=== PATIENT | male | born 1955 | race Caucasian/White ===

== ENCOUNTER → 2017-12-07 | Outpatient (CLI) | payer MEDICARE, MEDICAID | LOC: M RAD 13:08 | DX: N18.3 Chronic kidney disease, stage 3 (moderate) (principal); N28.1 Cyst of kidney, acquired | CPT/HCPCS: 76775 ==

== ENCOUNTER → 2018-01-15 | Outpatient (REF) | payer MEDICARE, MEDICAID ==
[2018-01-15 12:56] LABS: APPEARANCE, URINE CLEAR (CLEAR); BACTERIA, URINE AUTO NEGATIVE (NEGATIVE); BILIRUBIN, URINE AUTO NEGATIVE (NEGATIVE); BLOOD, URINE BLOOD NEGATIVE (NEGATIVE); COLOR, URINE YELLOW (YELLOW); GLUCOSE, URINE (UA) AUTO NEGATIVE (NEGATIVE); KETONE, URINE AUTO NEGATIVE (NEGATIVE); LEUKOCYTE ESTERASE, URINE AUTO NEGATIVE (NEGATIVE); MUCUS, URINE SMALL (NEGATIVE); NITRITE, URINE AUTO NEGATIVE (NEGATIVE); PROTEIN, URINE AUTO 1+ mg/dL (NEGATIVE); RBC, URINE AUTO 1 /HPF (0-3); SPECIFIC GRAVITY URINE AUTO 1.015 (1.002-1.035); SQUAMOUS EPITHELIAL CELL UR AU 0 /HPF (0-6); UROBILINOGEN, URINE AUTO 0.2 mg/dL (0.0-2.0); WBC, URINE AUTO 6 /HPF (0-3)
[2018-01-15 13:02] LABS: BASO # 0.1 10^3/uL (0.0-0.2); BASO % 0.6 % (0.0-1.0); EOS # 0.4 10^3/uL (0.0-0.50); EOS % 3.3 % (0.0-3.0); HEMATOCRIT 44.2 % (42.0-52.0); IMMATURE GRANULOCYTE % 0.2 % (0-3.0); LYMPH % 18.4 % (24.0-44.0); MEAN CORPUSCULAR HEMOGLOBIN 27.8 pg (27.0-33.0); MEAN CORPUSCULAR HGB CONC 31.7 g/dl (32.0-36.5); MEAN CORPUSCULAR VOLUME 87.9 fl (80.0-96.0); MONO # 0.7 10^3/uL (0.0-0.8); MONO % 6.4 % (0.0-5.0); NEUTROPHILS # 7.6 10^3/uL (1.8-7.7); NEUTROPHILS % 71.1 % (36.0-66.0); PLATELET COUNT, AUTOMATED 309 10^3/uL (150-450); RED BLOOD COUNT 5.03 10^6/uL (4.30-6.10); RED CELL DISTRIBUTION WIDTH 14.4 % (11.5-14.5); WHITE BLOOD COUNT 10.7 10^3/uL (4.0-10.0)
[2018-01-15 13:51] LABS: MAU/CREAT RATIO 100.7 MCG/MG (0.0-30.0)
[2018-01-15 14:17] LABS: ALBUMIN 3.4 GM/DL (3.2-5.2); ALBUMIN/GLOBULIN RATIO 1.21 (1.00-1.93); ALKALINE PHOSPHATASE 118 U/L (45-117); ALT/SGPT 34 U/L (12-78); ANION GAP 8 MEQ/L (8-16); AST/SGOT 19 U/L (7-37); BILIRUBIN,TOTAL 0.5 MG/DL (0.2-1.0); BLOOD UREA NITROGEN 26 MG/DL (7-18); CALCIUM LEVEL 8.7 MG/DL (8.8-10.2); CARBON DIOXIDE LEVEL 28 MEQ/L (21-32); CHLORIDE LEVEL 107 MEQ/L (98-107); CHOLESTEROL LEVEL 172 MG/DL (<200); CHOLESTEROL RISK RATIO 4.648 (<5); CREATININE FOR GFR 2.04 MG/DL (0.70-1.30); FREE T4 0.88 NG/DL (0.76-1.46); GLOMERULAR FILTRATION RATE 35.3 (>49); GLUCOSE, FASTING 115 MG/DL (70-100); HDL CHOLESTEROL 37 MG/DL (>40); LDL CHOLESTEROL 99 MG/DL (<100); NON-HDL-C 135 MG/DL; POTASSIUM SERUM 4.6 MEQ/L (3.5-5.1); SODIUM LEVEL 143 MEQ/L (136-145); TOTAL 25(OH) VITAMIN D 94.4 NG/ML (30.0-100.0); TOTAL PROTEIN 6.2 GM/DL (6.4-8.2); TRIGLYCERIDES LEVEL 181 MG/DL (<150)
[2018-01-15 14:39] LABS: ESTIMATED AVERAGE GLUCOSE 126 MG/DL (60-110)
== END ==
LOC: M SFHCADAM 08:34
DX: N18.3 Chronic kidney disease, stage 3 (moderate) (principal); K21.0 Gastro-esophageal reflux disease with esophagitis; E55.9 Vitamin D deficiency, unspecified; I05.9 Rheumatic mitral valve disease, unspecified; R73.01 Impaired fasting glucose
CPT/HCPCS: 84443

== ENCOUNTER → 2018-01-29 | Outpatient (CLI) | payer MEDICARE, MEDICAID | LOC: M RAD 09:44 | DX: Z12.2 Encounter for screening for malignant neoplasm of respiratory organs (principal); R91.8 Other nonspecific abnormal finding of lung field; Z87.891 Personal history of nicotine dependence | CPT/HCPCS: G0297 ==

== ENCOUNTER 2018-02-13 13:55 | Emergency (ER) | payer MEDICARE, MEDICAID ==
[2018-02-13] MEDS: ADACEL/BOOSTRIX VACCINE (DIPHTH/PERTUSS/ACELL/TETANUS)0.5ML SYR (90715) IM (15:51)
== END 2018-02-13 16:14 | disposition home or self-care (01) ==
LOC: M ED 13:55
DX: S41.159A Open bite of unspecified upper arm, initial encounter (principal); W54.0XXA Bitten by dog, initial encounter; I25.10 Atherosclerotic heart disease of native coronary artery without angina pectoris; K21.9 Gastro-esophageal reflux disease without esophagitis; J45.909 Unspecified asthma, uncomplicated; Y92.9 Unspecified place or not applicable
CPT/HCPCS: 90715

== ENCOUNTER → 2018-02-22 | Outpatient (CLI) | payer MEDICARE, MEDICAID ==
[~2018-02-22] MED LIST: ACET1TAB55 PO; ACID1CAP5 PO; ASPI81TA85 PO; ATEN50TA2 PO; ATOR1TAB21 PO; AUGM875T28 PO; COUM1TAB17 PO; KEFL500C17 PO; LIPI10TA PO; NITR4TASL SL; OMEP20CA3 PO
--- NOTE | 2018-02-23 02:40 | REP ---
Clinical: Panlobular emphysema . Comparison: 11/08/2017 in . Technique: PA and lateral. Findings: The mediastinum and cardiac silhouette are normal. The lung gill[place] demonstrate chronic appearing interstitial changes as well as prior sternotomy and cardiac valve repair without acute. No consolidation, effusion, or pneumothorax. The skeletal structures are intact and normal. Impression: 1. No acute cardiopulmonary process. Electronically Signed by Marquez Crowe MD 02/23/2018 02:31 A
== END ==
LOC: M ADAMS 09:49
PROVIDERS: ATTEND Physician Assistant Medical
DX: J43.1 Panlobular emphysema (principal); R91.1 Solitary pulmonary nodule

== ENCOUNTER 2018-03-15 06:27 | Inpatient (IN) | payer MEDICARE, MEDICAID ==
[2018-03-15] VITALS (21 sets, daily range): BP systolic 98–165; BP diastolic 62–81
[~2018-03-15 06:27] MED LIST changes: +HEPARIN 1,000 UNITS/ML 10ML VIAL (FOR RADIOLOGY& DIALYSIS ONLY) As Ordered ONE; +ISOVUE-300 61% 50ML VIAL (Q9967) As Ordered ONE; +LIDOCAINE 2% MDV 20 ML VIAL As Ordered ONE; +MIDAZOLAM INJ 2 MG/2 ML VIAL (J2250) As Ordered ONE; +fentaNYL 100 MCG/2 ML INJECTION (J3010) As Ordered ONE
[2018-03-15 07:06] LABS: HEMOGLOBIN 14.2 g/dl (13.5-17.5); MEAN CORPUSCULAR HEMOGLOBIN 27.8 pg (27.0-33.0); MEAN CORPUSCULAR HGB CONC 32.3 g/dl (32.0-36.5); MEAN CORPUSCULAR VOLUME 86.1 fl (80.0-96.0); PLATELET COUNT, AUTOMATED 265 10^3/uL (150-450); RED BLOOD COUNT 5.11 10^6/uL (4.30-6.10); WHITE BLOOD COUNT 13.4 10^3/uL (4.0-10.0)
[2018-03-15 07:33] LABS: INR 3.38
[2018-03-15 07:54] LABS: CALCIUM LEVEL 8.8 MG/DL (8.8-10.2); CREATININE FOR GFR 2.15 MG/DL (0.70-1.30); GLOMERULAR FILTRATION RATE 33.2 (>49); POTASSIUM SERUM 4.5 MEQ/L (3.5-5.1)
[2018-03-15 10:34] LABS: HEMOGLOBIN 13.1 g/dl (13.5-17.5); MEAN CORPUSCULAR HEMOGLOBIN 28.1 pg (27.0-33.0); MEAN CORPUSCULAR VOLUME 87.8 fl (80.0-96.0); PLATELET COUNT, AUTOMATED 245 10^3/uL (150-450); RED BLOOD COUNT 4.67 10^6/uL (4.30-6.10); WHITE BLOOD COUNT 12.5 10^3/uL (4.0-10.0)
[2018-03-15 10:56] LABS: ALBUMIN 3.2 GM/DL (3.2-5.2); BILIRUBIN,TOTAL 0.7 MG/DL (0.2-1.0); CALCIUM LEVEL 8.1 MG/DL (8.8-10.2); CREATININE FOR GFR 2.22 MG/DL (0.70-1.30); TOTAL PROTEIN 5.7 GM/DL (6.4-8.2)
[2018-03-15] MEDS ORDERED: PHYTONADIONE 5 MG TAB PO ONE (11:00)
[2018-03-15] MEDS ORDERED: BISACODYL 10 MG SUPP PR PRN (11:30)
[2018-03-15] MEDS ORDERED: ACETAMINOPHEN TAB 650MG DOSE (2X325MG) PO PRN (11:30)
[2018-03-15] MEDS ORDERED: MOM 30ML SUSPENSION UDC PO PRN (11:30)
[2018-03-15] MEDS ORDERED: ONDANSETRON 4MG/2ML VIAL (J2405) IV PRN (11:30)
[2018-03-15 12:06] LABS: INR 3.25; PROTHROMBIN TIME 33.9 SECONDS (12.1-14.4)
[2018-03-15] MEDS: LR 1,000 ML IV SCH ×2 (12:51→20:10)
[2018-03-15] MEDS: DOCUSATE SODIUM 100 MG CAP PO SCH ×2 (13:14→21:53)
[2018-03-15] MEDS: SENOKOT S TAB PO SCH ×2 (13:14→21:53)
--- NOTE | 2018-03-15 13:57 | REP ---
CT abdomen and pelvis without IV contrast: History: Abdominal aortic aneurysm. Right common iliac artery aneurysm. CT findings: Preliminary digital quarantine inspector radiograph demonstrates retained diverticular barium in the left colon, appendicular barium on the right and median sternotomy and cardiac valve replacement wires in the lower chest. Bowel gas pattern is normal. The liver and the spleen are normal in size, homogeneous in texture. There is a sliding type hiatal hernia. No adrenal lesion is seen. There are three identifiable accessory splenules. There is marked renal cortical atrophy of the right kidney which is quite small. Mild atrophic changes are noted on the left. There is contrast material in the collecting system bilaterally. I suspect a parenchymal calcification in the left mid kidney as well. No hydronephrosis is seen. No pancreatic abnormalities observed. There is a descending duodenal diverticulum. An infrarenal bilobed abdominal aortic aneurysm is seen. The more proximal portion of dilation measures 3.7 cm in AP dimension. Distal portion of the aneurysm measures 3.1 cm in AP dimension. The right common iliac artery is mildly aneurysmal as well measuring 2.2 cm in greatest AP dimension. There is a moderate size hematoma involving the right inguinal canal and extra peritoneal soft tissues. This displaces the bladder dome to the left and extends well up into the extraperitoneal portion of the pelvis anteriorly. Seminal vesicles and prostate are unremarkable. Left colonic diverticulosis is seen. Impression: Extraperitoneal right groin and right pelvic hematoma displacing the bladder to the left. Aorto right iliac aneurysm as above. Left colonic diverticulosis. Electronically Signed by Andre Cisneros MD 03/15/2018 04:25 P
[2018-03-15] MEDS ORDERED: ATENOLOL 50 MG TAB PO SCH (20:00)
[2018-03-15] MEDS ORDERED: ATENOLOL 50 MG TAB As Ordered ONE (20:08)
[2018-03-15] MEDS ORDERED: OMEPRAZOLE 20 MG CAP PO SCH (21:00)
[2018-03-15] MEDS ORDERED: METOPROLOL 5 MG/5 ML VIAL IV ONE (21:40)
[2018-03-15] MEDS ORDERED: METOPROLOL 5 MG/5 ML VIAL As Ordered ONE (21:48)
[2018-03-16] VITALS (13 sets, daily range): BP systolic 83–128; BP diastolic 56–77
[2018-03-16] MEDS: LR 1,000 ML IV SCH (03:47)
[2018-03-16 05:10] LABS: BASO % 0.1 % (0.0-1.0); EOS # 0.3 10^3/uL (0.0-0.50); EOS % 3.2 % (0.0-3.0); HEMATOCRIT 36.6 % (42.0-52.0); HEMOGLOBIN 11.9 g/dl (13.5-17.5); LYMPH # 1.6 10^3/uL (1.5-4.5); LYMPH % 16.5 % (24.0-44.0); MEAN CORPUSCULAR HEMOGLOBIN 28.3 pg (27.0-33.0); MEAN CORPUSCULAR HGB CONC 32.5 g/dl (32.0-36.5); MEAN CORPUSCULAR VOLUME 87.1 fl (80.0-96.0); MONO # 0.7 10^3/uL (0.0-0.8); MONO % 6.9 % (0.0-5.0); NEUTROPHILS % 73.1 % (36.0-66.0); PLATELET COUNT, AUTOMATED 229 10^3/uL (150-450); WHITE BLOOD COUNT 9.5 10^3/uL (4.0-10.0)
[2018-03-16 05:27] LABS: CREATININE FOR GFR 2.06 MG/DL (0.70-1.30); GLOMERULAR FILTRATION RATE 34.9 (>49); POTASSIUM SERUM 4.4 MEQ/L (3.5-5.1)
[2018-03-16 05:33] LABS: INR 1.25; PROTHROMBIN TIME 15.9 SECONDS (12.1-14.4)
[2018-03-16 05:34] LABS: PARTIAL THROMBOPLASTIN TIME 30.4 SECONDS (25.4-37.6)
[2018-03-16 08:46] LABS: INR 1.46
[2018-03-16] MEDS: DOCUSATE SODIUM 100 MG CAP PO SCH (09:00)
[2018-03-16] MEDS: SENOKOT S TAB PO SCH (09:00)
--- NOTE | 2018-03-16 10:25 | IPNPDOC ---
Subjective Date Seen The patient was seen on 03/16/18. Subjective Chief Complaint/HPI C/o soreness in Rt groin. +BM yesterday and today. Objective Physical Examination General Exam: Positive: Alert, No Acute Distress Eye Exam: Positive: PERRLA, Conjunctiva & lids normal, EOMI ENT Exam: Positive: Atraumatic Neck Exam: Positive: Supple, +2 carotid pulse wo bruit Chest Exam: Positive: Clear to auscultation, Normal air movement; Negative: Rales, Rhonchi, Wheezing, Diminished, Other Heart Exam: Positive: Rate Normal, Irregular Rhythm, Normal S1, Normal S2; Negative: Regular Rhythm, Gallops, Murmurs, Rubs, Other Abdomen Exam: Positive: BS Hypoactive, Tenderness (Distended abd, no rebound or rigid abd, RLQ tenderness, dull to percusion), Other; Negative: Normal bowel sounds, Soft, Hepatospenomegaly, Mass, Hernia Neuro Exam: Positive: Normal Speech, Cranial Nerves 3-12 NL Psych Exam: Positive: Mental status NL, Mood NL Assessment /Plan Assessment 1. Rt groin hematoma S/p BLE angiogram for PVD Hematoma is stable w/o change from yesterday. ready to dc home. 2. Infrarenal AAA incidental. 3. Rt CHRISTIAN aneurysm, incidental. 4. BLE PVD with claudication. 5. CAD s/p CABG x3, 1995 6. CKD III 7. TAMIR on CPAP Plan/VTE VTE Prophylaxis Ordered?: Yes Plan DC home today. F/u with Dr Nascimento in 1 week. [facility] Vital Signs/I&O Vital Signs Date Time Temp Pulse Resp B/P (MAP) Pulse Ox O2 Delivery O2 Flow Rate FiO2 03/16/18 09:00 75 108/60 (76) 03/16/18 08:00 98.1 18 94 Room Air 03/15/18 17:00 1.0 I&O- Last 24 Hours up to 6 AM 03/16/18 06:00 Intake Total 2435 ml Output Total 875 ml Balance 1560 ml Laboratory Data 24H LABS Laboratory Tests 2 03/15/18 18:32: Prothrombin Time 18.0H, Prothromb Time International Ratio 1.46 03/16/18 04:52: Prothrombin Time 15.9H, Prothromb Time International Ratio 1.25, Immature Granulocyte % (Auto) 0.2, White Blood Count 9.5, Red Blood Count 4.20L, Hemoglobin 11.9L, Hematocrit 36.6L, Mean Corpuscular Volume 87.1, Mean Corpuscular Hemoglobin 28.3, Mean Corpuscular Hemoglobin Concent 32.5, Red Cell Distribution Width 14.6H, Platelet Count 229, Neutrophils (%) (Auto) 73.1H, Lymphocytes (%) (Auto) 16.5L, Monocytes (%) (Auto) 6.9H, Eosinophils (%) (Auto) 3.2H, Basophils (%) (Auto) 0.1, Neutrophils # (Auto) 7.0, Lymphocytes # (Auto) 1.6, Monocytes # (Auto) 0.7, Eosinophils # (Auto) 0.3, Basophils # (Auto) 0.0, Nucleated Red Blood Cells % (auto) 0.0, Activated Partial Thromboplast Time 30.4, Anion Gap 5L, Glomerular Filtration Rate 34.9L, Blood Urea Nitrogen 30H, Creatinine 2.06H, Sodium Level 142, Potassium Level 4.4, Chloride Level 109H, Carbon Dioxide Level 28, Calcium Level 8.0L CBC/BMP Laboratory Tests 03/16/18 04:52 Red Blood Count 4.20 L, Mean Corpuscular Volume 87.1, Mean Corpuscular Hemoglobin 28.3, Mean Corpuscular Hemoglobin Concent 32.5, Red Cell Distribution Width 14.6 H, Neutrophils (%) (Auto) 73.1 H, Lymphocytes (%) (Auto) 16.5 L, Monocytes (%) (Auto) 6.9 H, Eosinophils (%) (Auto) 3.2 H, Basophils (%) (Auto) 0.1, Neutrophils # (Auto) 7.0, Lymphocytes # (Auto) 1.6, Monocytes # (Auto) 0.7, Eosinophils # (Auto) 0.3, Basophils # (Auto) 0.0, Calcium Level 8.0 L EMILY HANKINS PA-C Mar 16, 2018 10:25
--- NOTE | 2018-03-16 12:52 | HPEPDOC ---
General Date of Admission Mar 15, 2018 at 12:13 Attending Physician: Matthew Nascimento MD Chief Complaint The patient is a 62-year-old male admitted with a reason for visit of PVD. History of Present Illness 62 yo male chronic 30 PKY smoker with PMH significant for CAD with 8x heart attack s/p CABG x3 and MVR, AFib on Warfarin and BLE PVD with worsening claudication underwent BLE angiogram yesterday with incidental finding of an infrarenal AAA and a RCIA aneurysm. The procedure complicated with moderate sized hematoma in Right groin. CT abd/pelvis w/o contrast demonstrated An infrarenal bilobed AAA 3.7 x3.1 cm and a Rt CHRISTIAN aneurysm 2.2 cm. Extraperitoneal right groin and right pelvic hematoma displacing the bladder to the left. His INR was 2.8. Vitamin K 10 mg IV x 1 was given in IR. Pt was admitted to hospital for observation. Home Medications Scheduled Amoxicillin/Clavulanate Potas (Augmentin 875-125 mg) 1 Tab Tab, 1 TAB PO BID Aspirin (Aspir-81) 81 Mg Tab, 81 MG PO QHS, (Reported) Atenolol (Atenolol) 50 Mg Tab, 50 MG PO QHS, (Reported) Atorvastatin Calcium (Atorvastatin Calcium) 20 Mg Tab, 20 MG PO QHS, (Reported) Cephalexin Monohydrate (Keflex) 500 Mg Cap, 1 CAP PO QID Lactobacillus (Acidophilus Lactobacilli) 1 Cap Cap, 1 CAP PO BID Omeprazole (Omeprazole) 20 Mg Cap, 20 MG PO QHS, (Reported) Warfarin Sod (Coumadin) 5 Mg Tab, 5 MG PO QHS, (Reported) Scheduled PRN Acetaminophen (Acetaminophen) 325 Mg Tab, 650 MG PO Q4H PRN for PAIN, (Reported) Nitroglycerin (Nitrostat) 0.4 Mg Subl, 0.4 MG SL Q5MP PRN for CHEST PAIN, (Reported) Allergies Coded Allergies: No Known Allergies (Verified , 11/08/17) Past Medical History Medical History 1. BLE PVD 2. CAD Hx 8x heart attacks 3. AFib on Warfarin 4. TAMIR on CPAP 5. CKD III Surgical History 1. CABG x3 2. MVR Review of Systems Other systems 14 systems reviewed and were negative except those listed in HPI. Physical Examination General Exam: Positive: Alert, Mild Distress Eye Exam: Positive: PERRLA, Conjunctiva & lids normal, EOMI ENT Exam: Positive: Atraumatic Neck Exam: Positive: Supple, +2 carotid pulse wo bruit Chest Exam: Positive: Clear to auscultation, Normal air movement; Negative: Rales, Rhonchi, Wheezing, Diminished, Other Heart Exam: Positive: Rate Normal, Regular Rhythm, Normal S1, Normal S2; Negative: Gallops, Murmurs, Rubs, Other Abdomen Exam: Positive: BS Hypoactive, Soft, Tenderness (Abd distended, RLQ tenderness to palpate, no rebound or acute abdmen. Dull to percussion globally); Negative: Normal bowel sounds, Hepatospenomegaly, Mass, Hernia, Other Extremity Exam: Negative: Clubbing, Cyanosis, Edema, Normal pulses (PP: not palpable but audible b/l, triphasic to PTs, biphasic to DPs), Tenderness, Swelling, Other Skin Exam: Positive: Nl turgor and temperature Neuro Exam: Positive: Strength at 5/5 X4 ext, Cranial Nerves 3-12 NL Psych Exam: Positive: Mental status NL, Mood NL, Oriented x 3 Vital Signs Vital Signs Date Time Temp Pulse Resp B/P (MAP) Pulse Ox O2 Delivery O2 Flow Rate FiO2 03/16/18 09:00 75 108/60 (76) 03/16/18 08:00 98.1 18 94 Room Air 03/15/18 17:00 1.0 Laboratory Data Labs 24H Laboratory Tests 2 03/15/18 10:00: Prothrombin Time 33.9H, Prothromb Time International Ratio 3.25 03/15/18 10:23: Nucleated Red Blood Cells % (auto) 0.0, Anion Gap 4L, Glomerular Filtration Rate 32.0L, Blood Urea Nitrogen 30H, Creatinine 2.22H, Sodium Level 139, Potassium Level 5.0, Chloride Level 107, Carbon Dioxide Level 28, Calcium Level 8.1L, Aspartate Amino Transf (AST/SGOT) 13, Alanine Aminotransferase (ALT/SGPT) 27, Alkaline Phosphatase 93, Total Bilirubin 0.7, Total Protein 5.7L, Albumin 3.2, Albumin/Globulin Ratio 1.28 03/15/18 18:32: Prothrombin Time 18.0H, Prothromb Time International Ratio 1.46 03/16/18 04:52: Prothrombin Time 15.9H, Prothromb Time International Ratio 1.25, Nucleated Red Blood Cells % (auto) 0.0, Anion Gap 5L, Glomerular Filtration Rate 34.9L, Blood Urea Nitrogen 30H, Creatinine 2.06H, Sodium Level 142, Potassium Level 4.4, Chloride Level 109H, Carbon Dioxide Level 28, Calcium Level 8.0L, Immature Granulocyte % (Auto) 0.2, White Blood Count 9.5, Red Blood Count 4.20L, Hemoglobin 11.9L, Hematocrit 36.6L, Mean Corpuscular Volume 87.1, Mean Corpuscular Hemoglobin 28.3, Mean Corpuscular Hemoglobin Concent 32.5, Red Cell Distribution Width 14.6H, Platelet Count 229, Neutrophils (%) (Auto) 73.1H, Lymphocytes (%) (Auto) 16.5L, Monocytes (%) (Auto) 6.9H, Eosinophils (%) (Auto) 3.2H, Basophils (%) (Auto) 0.1, Neutrophils # (Auto) 7.0, Lymphocytes # (Auto) 1.6, Monocytes # (Auto) 0.7, Eosinophils # (Auto) 0.3, Basophils # (Auto) 0.0, Activated Partial Thromboplast Time 30.4 CBC/BMP Laboratory Tests 03/15/18 10:23 Red Blood Count 4.67, Mean Corpuscular Volume 87.8, Mean Corpuscular Hemoglobin 28.1, Mean Corpuscular Hemoglobin Concent 32.0, Red Cell Distribution Width 14.6 H, Calcium Level 8.1 L, Aspartate Amino Transf (AST/SGOT) 13, Alanine Aminotransferase (ALT/SGPT) 27, Alkaline Phosphatase 93, Total Bilirubin 0.7, Total Protein 5.7 L, Albumin 3.2 03/16/18 04:52 Red Blood Count 4.20 L, Mean Corpuscular Volume 87.1, Mean Corpuscular Hemoglobin 28.3, Mean Corpuscular Hemoglobin Concent 32.5, Red Cell Distribution Width 14.6 H, Calcium Level 8.0 L, Neutrophils (%) (Auto) 73.1 H, Lymphocytes (%) (Auto) 16.5 L, Monocytes (%) (Auto) 6.9 H, Eosinophils (%) (Auto) 3.2 H, Basophils (%) (Auto) 0.1, Neutrophils # (Auto) 7.0, Lymphocytes # (Auto) 1.6, Monocytes # (Auto) 0.7, Eosinophils # (Auto) 0.3, Basophils # (Auto) 0.0 Assessment/Plan 1. BLE PVD with worsening claudication. 2. Infrarenal bilobed AAA (3.1 x 3.7 cm, incidental) 3. Rt CHRISTIAN aneurysm (2.2cm, incidental) 4. CAD s/p CABGx3,1995 5. AFib on Warfarin 6. CKD III 7. Chronic smoker, quit 6 months ago Plan / VTE VTE Prophylaxis Ordered?: Yes Plan Plan 1. Monitor the hematoma. If it is stable, will dc home and f/u in office. Case discussed with Dr Azam HANKINS,EMILY WRIGHT Mar 16, 2018 10:30
--- NOTE | 2018-03-16 13:14 | DS.PDOC ---
Discharge Summary General Date of Admission Mar 15, 2018 at 12:13 Date of Discharge 03/16/18 Attending Physician: Matthew Nascimento MD Discharge Summary PROCEDURES PERFORMED DURING STAY: BLE angiogram ADMITTING DIAGNOSES: 1. Rt groin hematoma s/p BLE angiogram for BLE PVD with claudication 2. AAA incidental 3. Rt CHRISTIAN aneurysm incidental 4. CAD s/p CABG x3 5. CKD III 6. AFib on Warfarin 7. TAMIR on CPAP DISCHARGE DIAGNOSES: Same above COMPLICATIONS/CHIEF COMPLAINT: PVD with claudication. HISTORY OF PRESENT ILLNESS: 62 yo male chronic 30 PKY smoker with PMH significant for CAD with 8x heart attack s/p CABG x3 and MVR, AFib on Warfarin and BLE PVD with worsening claudication underwent BLE angiogram yesterday with incidental finding of an infrarenal AAA and a RCIA aneurysm. The procedure complicated with moderate sized hematoma in Right groin. CT abd/pelvis w/o contrast demonstrated An infrarenal bilobed AAA 3.7 x3.1 cm and a Rt CHRISTIAN aneurysm 2.2 cm. Extraperitoneal right groin and right pelvic hematoma displacing the bladder to the left. His INR was 2.8. Vitamin K 10 mg IV x 1 was given in IR. Pt was admitted to hospital for observation. HOSPITAL COURSE: Pt has bee stable during o/n observation. The hematoma has been stable w/o expansion. Pt was ready to be discharged home. Will f/u with us in clinic. DISCHARGE MEDICATIONS: Please see below. ALLERGIES: Please see below. PHYSICAL EXAMINATION ON DISCHARGE: VITAL SIGNS: Please see below. GENERAL: AAO x3 HEENT: NCAD, AVA, EOMI NECK: Supple, no carotid bruits CARDIOVASCULAR EXAMINATION: RRR, no G/M/R, PP: audible x4 RESPIRATORY EXAMINATION: CTAB, no R/R/W ABDOMINAL EXAMINATION: BS hypoactive, RLQ near Rt groin tenderness improved, hematoma stable no expansion EXTREMITIES: No C/C/E SKIN: warm and moist NEUROLOGICAL EXAMINATION: CN2-12, motor and sensation intact no focal deficits PSYCHIATRIC EXAMINATION: Appropriate mood and affect. LABORATORY DATA: Please see below. IMAGING: None PROGNOSIS: Good ACTIVITY: As tolerated. DIET: Resume previous diet DISCHARGE PLAN: discharge today DISPOSITION:home. DISCHARGE INSTRUCTIONS: Monitor the hematoma and call our office /go to ER if the RLQ tenderness gets worse or the hematoma expands/ ITEMS TO FOLLOWUP ON ON OUTPATIENT: None DISCHARGE CONDITION: Stable. TIME SPENT ON DISCHARGE: Greater than 60 minutes. Vital Signs/I&Os Vital Signs Date Time Temp Pulse Resp B/P (MAP) Pulse Ox O2 Delivery O2 Flow Rate FiO2 03/16/18 11:00 70 20 103/56 (72) 95 Room Air 03/16/18 08:00 98.1 03/15/18 17:00 1.0 I&O- Last 24 Hours up to 6 AM 03/16/18 05:59 Intake Total 2435 ml Output Total 875 ml Balance 1560 ml Laboratory Data Labs 24H Laboratory Tests 2 03/15/18 18:32: Prothrombin Time 18.0H, Prothromb Time International Ratio 1.46 03/16/18 04:52: Prothrombin Time 15.9H, Prothromb Time International Ratio 1.25, Immature Granulocyte % (Auto) 0.2, White Blood Count 9.5, Red Blood Count 4.20L, Hemoglobin 11.9L, Hematocrit 36.6L, Mean Corpuscular Volume 87.1, Mean Corpuscular Hemoglobin 28.3, Mean Corpuscular Hemoglobin Concent 32.5, Red Cell Distribution Width 14.6H, Platelet Count 229, Neutrophils (%) (Auto) 73.1H, Lymphocytes (%) (Auto) 16.5L, Monocytes (%) (Auto) 6.9H, Eosinophils (%) (Auto) 3.2H, Basophils (%) (Auto) 0.1, Neutrophils # (Auto) 7.0, Lymphocytes # (Auto) 1.6, Monocytes # (Auto) 0.7, Eosinophils # (Auto) 0.3, Basophils # (Auto) 0.0, Nucleated Red Blood Cells % (auto) 0.0, Activated Partial Thromboplast Time 30.4, Anion Gap 5L, Glomerular Filtration Rate 34.9L, Blood Urea Nitrogen 30H, Creatinine 2.06H, Sodium Level 142, Potassium Level 4.4, Chloride Level 109H, Carbon Dioxide Level 28, Calcium Level 8.0L CBC/BMP Laboratory Tests 03/16/18 04:52 Red Blood Count 4.20 L, Mean Corpuscular Volume 87.1, Mean Corpuscular Hemoglobin 28.3, Mean Corpuscular Hemoglobin Concent 32.5, Red Cell Distribution Width 14.6 H, Neutrophils (%) (Auto) 73.1 H, Lymphocytes (%) (Auto) 16.5 L, Monocytes (%) (Auto) 6.9 H, Eosinophils (%) (Auto) 3.2 H, Basophils (%) (Auto) 0.1, Neutrophils # (Auto) 7.0, Lymphocytes # (Auto) 1.6, Monocytes # (Auto) 0.7, Eosinophils # (Auto) 0.3, Basophils # (Auto) 0.0, Calcium Level 8.0 L Discharge Medications Scheduled Amoxicillin/Clavulanate Potas (Augmentin 875-125 mg) 1 Tab Tab, 1 TAB PO BID Aspirin (Aspir-81) 81 Mg Tab, 81 MG PO QHS, (Reported) Atenolol (Atenolol) 50 Mg Tab, 50 MG PO QHS, (Reported) Atorvastatin Calcium (Atorvastatin Calcium) 20 Mg Tab, 20 MG PO QHS, (Reported) Cephalexin Monohydrate (Keflex) 500 Mg Cap, 1 CAP PO QID Lactobacillus (Acidophilus Lactobacilli) 1 Cap Cap, 1 CAP PO BID Omeprazole (Omeprazole) 20 Mg Cap, 20 MG PO QHS, (Reported) Warfarin Sod (Coumadin) 5 Mg Tab, 5 MG PO QHS, (Reported) Scheduled PRN Acetaminophen (Acetaminophen) 325 Mg Tab, 650 MG PO Q4H PRN for PAIN, (Reported) Nitroglycerin (Nitrostat) 0.4 Mg Subl, 0.4 MG SL Q5MP PRN for CHEST PAIN, (Reported) Allergies Coded Allergies: No Known Allergies (Verified , 11/08/17) EMILY HANKINS PA-C Mar 16, 2018 13:14
--- NOTE | 2018-04-02 10:13 | REPIR ---
DATE OF PROCEDURE: 03/15/2018 ATTENDING SURGEON: Dr. Jeniffer Nascimento QUARTZ ORIENTATOR: Inna Renee and Sophie Mooney PREOPERATIVE DIAGNOSES: Bilateral lower extremity claudication. Chronic renal insufficiency, stage III. Abdominal aortic aneurysm. Right common iliac artery aneurysm. POSTOPERATIVE DIAGNOSES: Bilateral lower extremity claudication. Chronic renal insufficiency, stage III. Abdominal aortic aneurysm. Right common iliac artery aneurysm. PROCEDURE: Ultrasound-guided right common femoral artery cannulation. Please directed. Aortogram. Iliofemoral angiogram. Bilateral lower extremity angiography. MYNX closure of the right common femoral arteriotomy. INDICATION: Patient is a 62-year-old male with claudication in both lower extremities who will undergo angiogram with possible angioplasty, stent and/or atherectomy. Risks, benefits and alternative treatment options were discussed with the patient. ANESTHESIA: Local with 10 mL of 2% lidocaine. FLUORO TIME: 0.7 minutes. CONTRAST: 9 mL of ISOVUE-300. HEPARIN: None. COMPLICATIONS: None. DRAINS: None. SPECIMENS: None. IMPLANT: Right common femoral arteriotomy closure with a MYNX closure device. PROCEDURE: The patient was taken to the angiography suite, placed supine on the angiography room table and then prepped and draped in a standard surgical fashion. The right common femoral artery was cannulated with a micropuncture needle after anesthetizing overlying skin with 2% lidocaine. A micropuncture wire was advanced through the micropuncture needle which was upsized to a micropuncture sheath. A Bentson wire was advanced through the micropuncture sheath, which was upsized to a 5 Lithuanian sheath. An Omni Flush catheter was placed in the aorta and aortogram was performed. Catheter was pulled down to the bifurcation of the iliac arteries and iliofemoral angiogram was performed. Catheter remained at the bifurcation of the iliac arteries and bilateral lower extremity angiography was performed. Catheter was then removed over a Bentson wire. A MYNX closure device was then used to close the arteriotomy in the right common femoral artery with an additional 10 minutes of adjunctive pressure applied for hemostasis. Dressings were then applied. The patient tolerated the procedure well. All instrument, sponge, and needle counts were correct at the end the case. There were no complications. Dr. Nascimento was present for and directed the entire case. The patient was transferred to the holding area and subsequently discharged in stable condition.
== END 2018-03-16 14:45 | disposition home or self-care (01) | DRG 909 ==
LOC: M IRPRO 06:27 → M ICU 12:13
PROVIDERS: ADMIT Surgery Vascular Surgery; ATTEND Surgery Vascular Surgery
PROC: 047K3ZZ Dilation of Right Femoral Artery, Percutaneous Approach (ICD-10-PCS; principal; 2018-03-15)
PROC: 047M3ZZ Dilation of Right Popliteal Artery, Percutaneous Approach (ICD-10-PCS; 2018-03-15)
PROC: B41FYZZ Fluoroscopy of Right Lower Extremity Arteries using Other Contrast (ICD-10-PCS; 2018-03-15)
DX: I97.638 Postprocedural hematoma of a circulatory system organ or structure following other circulatory system procedure (principal); N18.3 Chronic kidney disease, stage 3 (moderate); G47.33 Obstructive sleep apnea (adult) (pediatric); I48.91 Unspecified atrial fibrillation; Z79.01 Long term (current) use of anticoagulants; I25.10 Atherosclerotic heart disease of native coronary artery without angina pectoris; Z95.1 Presence of aortocoronary bypass graft; I70.213 Atherosclerosis of native arteries of extremities with intermittent claudication, bilateral legs; I71.4 Abdominal aortic aneurysm, without rupture; I72.3 Aneurysm of iliac artery; Z79.82 Long term (current) use of aspirin; Z79.899 Other long term (current) drug therapy; Z87.891 Personal history of nicotine dependence; Y83.8 Other surgical procedures as the cause of abnormal reaction of the patient, or of later complication, without mention of misadventure at the time of the procedure

== ENCOUNTER → 2018-03-29 | Outpatient (REF) | payer MEDICARE, MEDICAID ==
[~2018-03-29] MED LIST changes: -HEPARIN 1,000 UNITS/ML 10ML VIAL (FOR RADIOLOGY& DIALYSIS ONLY) As Ordered ONE; -ISOVUE-300 61% 50ML VIAL (Q9967) As Ordered ONE; -LIDOCAINE 2% MDV 20 ML VIAL As Ordered ONE; -MIDAZOLAM INJ 2 MG/2 ML VIAL (J2250) As Ordered ONE; -fentaNYL 100 MCG/2 ML INJECTION (J3010) As Ordered ONE
[2018-03-29 20:17] LABS: CALCIUM LEVEL 8.8 MG/DL (8.8-10.2); CREATININE FOR GFR 2.22 MG/DL (0.70-1.30); POTASSIUM SERUM 4.8 MEQ/L (3.5-5.1)
[2018-03-29 20:28] LABS: BASO # 0.1 10^3/uL (0.0-0.2); BASO % 0.6 % (0.0-1.0); EOS # 0.3 10^3/uL (0.0-0.50); EOS % 3.5 % (0.0-3.0); HEMATOCRIT 38.7 % (42.0-52.0); LYMPH # 1.7 10^3/uL (1.5-4.5); LYMPH % 17.6 % (24.0-44.0); MEAN CORPUSCULAR HEMOGLOBIN 27.5 pg (27.0-33.0); MEAN CORPUSCULAR VOLUME 88.8 fl (80.0-96.0); MONO # 0.7 10^3/uL (0.0-0.8); MONO % 7.7 % (0.0-5.0); NEUTROPHILS # 6.6 10^3/uL (1.8-7.7); NEUTROPHILS % 70.2 % (36.0-66.0); PLATELET COUNT, AUTOMATED 366 10^3/uL (150-450); RED BLOOD COUNT 4.36 10^6/uL (4.30-6.10); WHITE BLOOD COUNT 9.4 10^3/uL (4.0-10.0)
== END ==
LOC: M SFHCADAM 11:36
PROVIDERS: ATTEND Physician Assistant Medical
DX: K21.0 Gastro-esophageal reflux disease with esophagitis (principal); J43.1 Panlobular emphysema; I11.9 Hypertensive heart disease without heart failure; I73.9 Peripheral vascular disease, unspecified
CPT/HCPCS: 80048; 85025; G0463

== ENCOUNTER → 2018-04-18 | Outpatient (CLI) | payer MEDICARE, MEDICAID ==
[~2018-04-18] MED LIST changes: +HEPARIN 1,000 UNITS/ML 10ML VIAL (FOR RADIOLOGY& DIALYSIS ONLY) As Ordered ONE; +ISOVUE-300 61% 50ML VIAL (Q9967) As Ordered ONE; +LIDOCAINE 2% MDV 20 ML VIAL As Ordered ONE; +MIDAZOLAM INJ 2 MG/2 ML VIAL (J2250) As Ordered ONE; +fentaNYL 100 MCG/2 ML INJECTION (J3010) As Ordered ONE
== END ==
LOC: M IRPRO 08:30
PROVIDERS: ATTEND Surgery Vascular Surgery
DX: I73.9 Peripheral vascular disease, unspecified (principal)

== ENCOUNTER 2018-09-20 10:54 | Emergency (ER) | payer MEDICAID, MEDICARE ==
[~2018-09-20] VITALS: Ht 170.2 cm; Wt 84.1 kg
[~2018-09-20 10:54] MED LIST changes: -HEPARIN 1,000 UNITS/ML 10ML VIAL (FOR RADIOLOGY& DIALYSIS ONLY) As Ordered ONE; -ISOVUE-300 61% 50ML VIAL (Q9967) As Ordered ONE; -LIDOCAINE 2% MDV 20 ML VIAL As Ordered ONE; -MIDAZOLAM INJ 2 MG/2 ML VIAL (J2250) As Ordered ONE; -OMEP20CA3 PO; +OMEP20CA4 PO; -fentaNYL 100 MCG/2 ML INJECTION (J3010) As Ordered ONE
[2018-09-20] MEDS ORDERED: PANT40TA3 (11:01)
[2018-09-20 12:16] LABS: BASO % 0.2 % (0.0-1.0); EOS % 0.1 % (0.0-3.0); HEMATOCRIT 42.9 % (42.0-52.0); HEMOGLOBIN 13.8 g/dl (13.5-17.5); LYMPH # 0.5 10^3/uL (1.5-4.5); LYMPH % 5.5 % (24.0-44.0); MEAN CORPUSCULAR HEMOGLOBIN 28.2 pg (27.0-33.0); MEAN CORPUSCULAR HGB CONC 32.2 g/dl (32.0-36.5); MEAN CORPUSCULAR VOLUME 87.7 fl (80.0-96.0); MONO # 0.6 10^3/uL (0.0-0.8); MONO % 7.4 % (0.0-5.0); NEUTROPHILS % 86.4 % (36.0-66.0); PLATELET COUNT, AUTOMATED 212 10^3/uL (150-450); RED BLOOD COUNT 4.89 10^6/uL (4.30-6.10); WHITE BLOOD COUNT 8.1 10^3/uL (4.0-10.0)
[2018-09-20] MEDS ORDERED: ACETAMINOPHEN TAB 650MG DOSE (2X325MG) PO ONE (12:30)
[2018-09-20] MEDS ORDERED: NS 1,000 ML IV ONE (12:30)
--- NOTE | 2018-09-20 12:46 | REP ---
Chest x-ray: Two views. History: Abdomen pain. Comparison chest x-ray: February 22, 2018. Findings: The patient is status post median sternotomy and aortic valve replacement. Heart is not enlarged. Pulmonary vasculature is not increased. Pleural angles are sharp. There is no evidence of infiltrate. No free subdiaphragmatic air is seen. Impression: No active disease. Status post median sternotomy and aortic valve replacement. Electronically Signed by Andre Cisneros MD 09/20/2018 12:38 P
[2018-09-20 12:56] LABS: ALBUMIN 3.3 GM/DL (3.2-5.2); BILIRUBIN,TOTAL 1.3 MG/DL (0.2-1.0); CALCIUM LEVEL 8.4 MG/DL (8.8-10.2); CREATININE FOR GFR 2.84 MG/DL (0.70-1.30); POTASSIUM SERUM 4.7 MEQ/L (3.5-5.1); TOTAL PROTEIN 6.4 GM/DL (6.4-8.2)
[2018-09-20] MEDS ORDERED: DOXY100C37 PO (15:02)
[2018-09-20 15:25] VITALS: BP 118/64
--- NOTE | 2018-09-21 05:43 | ECGEPIP ---
[facility] - ED Test Date: 2018-09-20 Pat Name: HOLLEY MARINELLI Department: Room: - Gender: Male Managing Consultant Clinical Professor: : [id number] Requested By: TRAY Hunt PA-C Order Number: [id number] Reading MD: Wilfredo West Measurements Intervals [place] Rate: 82 P: 64 LA: 165 QRS: 75 QRSD: 94 T: 76 QT: 343 QTc: 402 Interpretive Statements SINUS RHYTHM WITH OCCASIONAL VENTRICULAR PREMATURE COMPLEXES POSSIBLE PRIOR INFERIOR INFARCT RHYTHM/RATE CHANGE COMPARED TO 11/08/17 Electronically Signed on 09-21-2018 5:42:57 EDT by Wilfredo West
[2018-09-22 00:06] LABS: Lyme Disease IgG/IgM Antibodie <0.91 ISR (0.00-0.90); Lyme Disease IgM Ab Quantitati <0.80 index (0.00-0.79)
== END 2018-09-20 15:34 | disposition home or self-care (01) ==
LOC: M ED 10:54
DX: N18.3 Chronic kidney disease, stage 3 (moderate) (principal); A26.0 Cutaneous erysipeloid; I12.9 Hypertensive chronic kidney disease with stage 1 through stage 4 chronic kidney disease, or unspecified chronic kidney disease; G47.30 Sleep apnea, unspecified; I25.10 Atherosclerotic heart disease of native coronary artery without angina pectoris; E78.5 Hyperlipidemia, unspecified; K21.9 Gastro-esophageal reflux disease without esophagitis; I25.2 Old myocardial infarction; Z79.899 Other long term (current) drug therapy; Z79.82 Long term (current) use of aspirin; Z79.01 Long term (current) use of anticoagulants; Z87.891 Personal history of nicotine dependence

== ENCOUNTER → 2018-12-07 | Outpatient (CLI) | payer MEDICARE, MEDICAID ==
[~2018-12-07] MED LIST changes: +DOXY100C37 PO; +PANT40TA3
--- NOTE | 2018-12-07 12:42 | REP ---
REASON FOR EXAM: Claudication. COMPARISON: None. On the right: The SG is 0.76. Reverse flow was seen within the dorsalis pedis. Peak systolic velocity: DEPUTY PROGRAM MANAGER 158.3 cm/s biphasic Profunda 129.5 cm/s triphasic SFA proximal 59.6 cm/s to 95.0 cm/s biphasic SFA mid 86.2 cm/s biphasic SFA distal 80.4 cm/s biphasic Popliteal artery 37.6 cm/s biphasic Anterior tibial artery proximally 25.7 cm/s biphasic Tibioperoneal trunk 37.2 cm/s biphasic Posterior tibial artery proximally 38.8 cm/s biphasic Posterior tibial artery distally 38.4 cm/s biphasic Anterior tibial artery reversed 28.5 cm/s monophasic On the left: The ankle-branchial index is 0.69. Peak systolic velocity: DEPUTY PROGRAM MANAGER 162.9 cm/s biphasic Profunda 120.3 cm/s biphasic SFA proximal 75.2 cm/s biphasic SFA mid 114.2 cm/s biphasic SFA distal 40.5 cm/s biphasic Popliteal artery 31.5 cm/s biphasic Anterior tibial artery proximally 15.3 cm/s monophasic Tibioperoneal trunk 33.5 cm/s biphasic Posterior tibial artery proximally 30.9 cm/s biphasic Posterior tibial artery distally 18.8 cm/s monophasic Anterior tibial artery reversed 57.4 cm/s biphasic Echogenic material is seen along the arterial viera some of which casts an acoustic shadow consistent with both soft and calcified atheromatous plaque formation. There was evidence of a mild stenosis of the superficial femoral artery proximally on the right profunda somewhat dilated. Reversal of flow is seen in the right anterior tibial artery distally. IMPRESSION: Findings as described above. Electronically Signed by Remigio Jordan DO 12/07/2018 02:06 P
== END ==
LOC: M RAD 09:54
PROVIDERS: ATTEND Surgery
DX: I73.89 Other specified peripheral vascular diseases (principal)

== ENCOUNTER → 2018-12-25 | Outpatient (REF) | payer MEDICARE, MEDICAID ==
[2018-12-25 16:28] LABS: BASO % 0.3 % (0.0-1.0); EOS # 0.2 10^3/uL (0.0-0.5); EOS % 1.5 % (0.0-3.0); HEMATOCRIT 41.3 % (42.0-52.0); HEMOGLOBIN 13.1 g/dl (13.5-17.5); LYMPH # 1.5 10^3/uL (1.5-5.0); LYMPH % 11.4 % (24.0-44.0); MEAN CORPUSCULAR HEMOGLOBIN 28.3 pg (27.0-33.0); MEAN CORPUSCULAR HGB CONC 31.7 g/dl (32.0-36.5); MEAN CORPUSCULAR VOLUME 89.2 fl (80.0-96.0); MONO # 0.9 10^3/uL (0.0-0.8); MONO % 6.7 % (0.0-5.0); NEUTROPHILS # 10.6 10^3/uL (1.5-8.5); PLATELET COUNT, AUTOMATED 267 10^3/uL (150-450); RED BLOOD COUNT 4.63 10^6/uL (4.30-6.10); WHITE BLOOD COUNT 13.4 10^3/uL (4.0-10.0)
[2018-12-25 16:38] LABS: ALBUMIN 3.4 GM/DL (3.2-5.2); BILIRUBIN,TOTAL 0.8 MG/DL (0.2-1.0); CALCIUM LEVEL 8.7 MG/DL (8.8-10.2); CHOLESTEROL RISK RATIO 3.255 (<5); CREATININE FOR GFR 2.37 MG/DL (0.70-1.30); GLOMERULAR FILTRATION RATE 29.6 (>49); POTASSIUM SERUM 4.6 MEQ/L (3.5-5.1); THYROID STIMULATING HORMONE 0.781 uIU/ML (0.358-3.740); TOTAL PROTEIN 6.2 GM/DL (6.4-8.2)
== END ==
LOC: M SFHCADAM 11:58
PROVIDERS: ATTEND Physician Assistant Medical
DX: K21.0 Gastro-esophageal reflux disease with esophagitis (principal); I25.810 Atherosclerosis of coronary artery bypass graft(s) without angina pectoris; N18.3 Chronic kidney disease, stage 3 (moderate)

== ENCOUNTER → 2019-04-30 | Outpatient (REF) | payer MEDICARE, MEDICAID ==
[~2019-04-30] MED LIST changes: +BREO1INH INH; +DEXI60CA2 PO; +INCR1INH IN; +OMEP1CAP73 PO; -OMEP20CA4 PO; -PANT40TA3; +PANT40TA3 PO; +VENTAER INH
[2019-04-30 17:10] LABS: APPEARANCE, URINE CLEAR (CLEAR); BACTERIA, URINE AUTO NEGATIVE (NEGATIVE); BILIRUBIN, URINE AUTO NEGATIVE (NEGATIVE); BLOOD, URINE BLOOD 1+ (NEGATIVE); COLOR, URINE YELLOW (YELLOW); GLUCOSE, URINE (UA) AUTO NEGATIVE (NEGATIVE); KETONE, URINE AUTO NEGATIVE (NEGATIVE); LEUKOCYTE ESTERASE, URINE AUTO NEGATIVE (NEGATIVE); NITRITE, URINE AUTO NEGATIVE (NEGATIVE); PROTEIN, URINE AUTO NEGATIVE (NEGATIVE); RBC, URINE AUTO 2 /HPF (0-3); SPECIFIC GRAVITY URINE AUTO 1.013 (1.002-1.035); SQUAMOUS EPITHELIAL CELL UR AU 0 /HPF (0-6); UROBILINOGEN, URINE AUTO 0.2 mg/dL (0.0-2.0); WBC, URINE AUTO 0 /HPF (0-3)
[2019-04-30 17:30] LABS: ALBUMIN 3.4 GM/DL (3.2-5.2); CALCIUM LEVEL 8.7 MG/DL (8.8-10.2); CREATININE FOR GFR 2.13 MG/DL (0.70-1.30); GLOMERULAR FILTRATION RATE 33.5 (>49); MAGNESIUM LEVEL 2.2 MG/DL (1.8-2.4); PHOSPHORUS LEVEL 3.5 MG/DL (2.5-4.9); POTASSIUM SERUM 4.4 MEQ/L (3.5-5.1)
[2019-04-30 17:48] LABS: MALB URINE SIEMENS 75.3 MG/L; MAU/CREAT RATIO 70.3 MCG/MG (0.0-30.0)
== END ==
LOC: M SFHCADAM 13:40
PROVIDERS: ATTEND Physician Assistant Medical
DX: I11.9 Hypertensive heart disease without heart failure (principal); Z23 Encounter for immunization
CPT/HCPCS: 80069; 81001; 82043; 83735; 90732; G0009

== ENCOUNTER → 2019-11-04 | Outpatient (CLI) | payer MEDICARE, MEDICAID ==
[~2019-11-04] MED LIST changes: -ASPI81TA85 PO; +ASPI81TA86 PO; +PANT40TA29 PO; -PANT40TA3 PO
--- NOTE | 2019-12-02 09:03 | REP ---
LEFT RIB SERIES CLINICAL: Left chest wall contusion. TECHNIQUE: Frontal view of the chest with four views of the left hemithorax. FINDINGS: Frontal view of the chest demonstrates prior sternotomy and aortic valve repair. Lung gilliland demonstrate chronic appearing interstitial changes without consolidation or effusion. No pneumothorax. Multiple views of the left hemithorax demonstrates no obvious acute rib fracture or pathology. IMPRESSION: No obvious left rib fracture or pathology appreciated. MTDD
== END ==
LOC: M ADAMS 10:51
PROVIDERS: ATTEND Physician Assistant
DX: S20.212A Contusion of left front wall of thorax, initial encounter (principal); X58.XXXA Exposure to other specified factors, initial encounter; Y92.89 Other specified places as the place of occurrence of the external cause

== ENCOUNTER 2021-01-20 09:26 | Outpatient (CLI) | payer MEDICARE, MEDICAID ==
[~2021-01-20] VITALS: Ht 170.2 cm; Wt 86.2 kg
[~2021-01-20 09:26] MED LIST changes: +ALBUTEROL 90 MCG/ACT 8GM HFA INHALER INH PRN; +ALBUTEROL SULFATE 2.5 MG/0.5 ML INH NEB SOLN INH PRN; +CASIRIVIMAB/IMDEVIMAB 1,200 MG in NS 250 ML IV ONE; +DOXY-443 PO; -DOXY100C37 PO; +EPINEPHrine INJ 1 MG/ML 1ML AMP IM PRN; +NS 1,000 ML IV SCH; +diphenhydrAMINE 50MG/ML VIAL (J1200) IV PRN; +methylPREDNISolone 125MG 2ML VIAL IV PRN
[2021-01-20 10:08] VITALS: BP 140/75
[2021-01-20 10:38] VITALS: BP 131/60
[2021-01-20 11:08] VITALS: BP 125/70
[2021-01-20 12:08] VITALS: BP 133/68
== END 2021-01-20 12:08 | disposition home or self-care (01) ==
LOC: M OPCLI4PR 09:26
PROVIDERS: ATTEND Physician Assistant Medical
DX: U07.1 COVID-19 (principal)

== ENCOUNTER → 2022-05-10 | Outpatient (CLI) | payer MEDICARE, MEDICAID ==
[~2022-05-10] MED LIST changes: -ALBUTEROL 90 MCG/ACT 8GM HFA INHALER INH PRN; -ALBUTEROL SULFATE 2.5 MG/0.5 ML INH NEB SOLN INH PRN; -CASIRIVIMAB/IMDEVIMAB 1,200 MG in NS 250 ML IV ONE; -EPINEPHrine INJ 1 MG/ML 1ML AMP IM PRN; -NS 1,000 ML IV SCH; -diphenhydrAMINE 50MG/ML VIAL (J1200) IV PRN; -methylPREDNISolone 125MG 2ML VIAL IV PRN
== END ==
LOC: M RAD 13:14
PROVIDERS: ATTEND Family Medicine
DX: R91.8 Other nonspecific abnormal finding of lung field (principal); J47.9 Bronchiectasis, uncomplicated; F17.210 Nicotine dependence, cigarettes, uncomplicated

== ENCOUNTER → 2022-09-20 | Outpatient (CLI) | payer MEDICARE, MEDICAID | LOC: M RAD 14:10 | PROVIDERS: ATTEND Internal Medicine Pulmonary Disease | DX: R91.8 Other nonspecific abnormal finding of lung field (principal); Z53.9 Procedure and treatment not carried out, unspecified reason ==

== ENCOUNTER → 2022-10-31 | Outpatient (CLI) | payer MEDICARE, MEDICAID | LOC: M RAD 10:26 | PROVIDERS: ATTEND Internal Medicine Pulmonary Disease | DX: R91.8 Other nonspecific abnormal finding of lung field (principal); Z95.2 Presence of prosthetic heart valve; J43.9 Emphysema, unspecified; J90 Pleural effusion, not elsewhere classified; I25.10 Atherosclerotic heart disease of native coronary artery without angina pectoris; I70.0 Atherosclerosis of aorta; K44.9 Diaphragmatic hernia without obstruction or gangrene; N26.1 Atrophy of kidney (terminal); N28.89 Other specified disorders of kidney and ureter ==

== ENCOUNTER → 2024-01-24 | Outpatient (CLI) | payer MEDICARE, MEDICAID ==
[~2024-01-24] MED LIST changes: +DOXY-441 PO; -DOXY-443 PO
== END ==
LOC: M RAD 10:55
PROVIDERS: ATTEND Internal Medicine Pulmonary Disease
DX: Z12.2 Encounter for screening for malignant neoplasm of respiratory organs (principal); F17.218 Nicotine dependence, cigarettes, with other nicotine-induced disorders; J47.9 Bronchiectasis, uncomplicated; I25.10 Atherosclerotic heart disease of native coronary artery without angina pectoris; I70.0 Atherosclerosis of aorta; K44.9 Diaphragmatic hernia without obstruction or gangrene; N26.1 Atrophy of kidney (terminal); J43.9 Emphysema, unspecified

== ENCOUNTER 2024-04-08 12:00 | Emergency (ER) | payer MEDICARE, MEDICAID ==
[~2024-04-08] VITALS: Ht 170.2 cm; Wt 81.7 kg
[2024-04-08 12:19] VITALS: BP 140/100; TEMP 96.9; O2SAT 97
== END 2024-04-08 17:55 | disposition left against medical advice (07) ==
LOC: M ED 12:00
DX: Z53.21 Procedure and treatment not carried out due to patient leaving prior to being seen by health care provider (principal)

== ENCOUNTER → 2024-06-17 | Outpatient (CLI) | payer MEDICARE, MEDICAID | LOC: M SLEEP HO 06-06 11:21 | PROVIDERS: ATTEND Internal Medicine Pulmonary Disease | DX: G47.33 Obstructive sleep apnea (adult) (pediatric) (principal); R06.83 Snoring ==